=== PATIENT | male | born 1980 | race Caucasian/White ===

== ENCOUNTER 2022-11-17 17:31 | Emergency (ER) | payer OTHER ==
[2022-11-17] MEDS ORDERED: Lidocaine 4% 1 each Patch TOP STA (17:45)
[2022-11-17] MEDS ORDERED: Diazepam 5 MG Tab PO ONE (17:45)
[2022-11-17] MEDS ORDERED: Ondansetron 4 MG Tab.DIS PO ONE (17:45)
== END 2022-11-17 20:10 | disposition home or self-care (01) ==
LOC: MW.ED 17:31
DX: S32.018A Other fracture of first lumbar vertebra, initial encounter for closed fracture (principal); V49.9XXA Car occupant (driver) (passenger) injured in unspecified traffic accident, initial encounter; Y92.410 Unspecified street and highway as the place of occurrence of the external cause
CPT/HCPCS: 72125; 72128; 72131; 99283; A9270